=== PATIENT | female | born 1945 | race Caucasian/White ===

== ENCOUNTER → 2016-07-13 | Outpatient (CLI) | payer MEDICARE, OTHER | END | disposition disaster alternative care site (69) | LOC: GBCOE 12:48 | DX: Z12.31 Encounter for screening mammogram for malignant neoplasm of breast (principal); Z13.820 Encounter for screening for osteoporosis; M85.89 Other specified disorders of bone density and structure, multiple sites; Z78.0 Asymptomatic menopausal state | CPT/HCPCS: G0202 ==

== ENCOUNTER 2016-08-20 07:22 | Emergency (ER) | payer MEDICARE, OTHER ==
--- NOTE | ~2016-08-20 | ER ---
PATIENT'S NAME: [facility] AGE: 71 Y [address] ROOM: [place] [address] LOCATION: [facility] ADMIT DATE: 08/20/2016 ER/Outpatient Report DISCHARGE DATE: 08/20/2016 FAMILY PHYSICIAN: Maggi Gaitan MD ATTENDING PHYSICIAN: Mike Ramirez Time of Arrival: 0722 hours. Time of Evaluation: 0730 hours. CHIEF COMPLAINT: Bladder infection. HISTORY OF PRESENT ILLNESS: The patient is a 71-year-old female, who presents to the emergency department today with chief complaint of bladder infection. She reports she has had increased frequency, burning with urination. She does have a history of bladder infections, has not had one in some time. Symptoms are currently 6 to 7/10 in severity. Denies any chest pain. No shortness of breath. No nausea or vomiting. No fevers or chills. No diarrhea. Denies any abdominal pain. PAST MEDICAL HISTORY: 1. Hypertension. 2. Czy-patzjxs-owfpxewgg diabetes. 3. Hypothyroidism. 4. Dyslipidemia. 5. Neuropathy. PAST SURGICAL HISTORY: 1. section. 2. Cholecystectomy. 3. Appendectomy. 4. Hysterectomy. SOCIAL HISTORY: The patient denies any tobacco use. Reports occasional alcohol use. Denies any illicit drug use. ALLERGIES: DOXYCYCLINE AND NSAIDS. MEDICATIONS: Please see list. PRIMARY CARE DOCTOR: Maggi Gaitan MD PATIENT'S NAME: [facility] AGE: 71 Y [address] ROOM: [place] [address] LOCATION: [facility] ADMIT DATE: 08/20/2016 ER/Outpatient Report DISCHARGE DATE: 08/20/2016 FAMILY PHYSICIAN: Maggi Gaitan MD ATTENDING PHYSICIAN: Mike Ramirez REVIEW OF SYSTEMS: All systems are reviewed by myself are negative with the exception of those discussed in the HPI and past medical history. PHYSICAL EXAMINATION: VITAL SIGNS: Weight 85.9 kg. Blood pressure 178/74, pulse 88, respiratory rate 16, temperature 97.7, and oxygen saturation 95% on room air. GENERAL: The patient is a 71-year-old female, who appears stated age, in no acute distress. HEENT: Head; normocephalic and atraumatic. Pupils are equal, round, and reactive to light. Mucous membranes moist. NECK: Supple. There is no nuchal rigidity. CARDIOVASCULAR: Regular rate and rhythm. No murmurs, rubs, or gallops. LUNGS: Clear to auscultation bilaterally. No wheezes, rales, or rhonchi. ABDOMEN: Soft, nontender, and nondistended. No rebound, rigidity, or guarding. MUSCULOSKELETAL: The patient moves all 4 extremities. SKIN: Warm and dry. No rashes or lesions noted. LABORATORY DATA AND IMAGING STUDIES: Labs and X-rays: Urinalysis was obtained, does reveal 500 leukocyte esterase, positive nitrites, 30 protein, 250 blood, full field wbc's, rare epithelials, and rare bacteria. IMPRESSION: 1. Acute urinary tract infection suspect bladder. 2. Initial visit. EMERGENCY DEPARTMENT COURSE: The patient was brought back to the examination room. Seen and evaluated by myself. Laboratory analysis was obtained as described above. I have discussed results with the patient. I have written a prescription for Macrobid as well as Pyridium. I have discussed following up with Dr. Gaitan in 2 to 3 days for re-evaluation. I have discussed return to care instructions including fevers, chills, worsening symptoms, or any other concerns to return to the emergency department as soon as possible. The patient is agreeable without further questions at this time. DISPOSITION: The patient was discharged to home in good condition. PATIENT'S NAME: SHAREE FERNANDEZ [facility] AGE: 71 Y [address] ROOM: [place] [address] LOCATION: ED ADMIT DATE: 08/20/2016 ER/Outpatient Report DISCHARGE DATE: 08/20/2016 FAMILY PHYSICIAN: Maggi Gaitan MD ATTENDING PHYSICIAN: Mike Ramirez DO KJR/ghadal /[id number] d: 08/20/16 1312 t: 08/21/16 1558, OUTPATIENT REPORT
[2016-08-20 07:34] LABS: BLOOD URINE 250 /UL (NEGATIVE); GLUCOSE URINE NEGATIVE (NEGATIVE); KETONE URINE NEGATIVE (NEGATIVE); LEUKOCYTES URINE 500 /UL (NEGATIVE); NITRITE URINE POSITIVE (NEGATIVE); PROTEIN URINE 30 mg/dL (NEGATIVE); TURBIDITY URINE 1+ (CLEAR); UROBILINOGEN URINE 4 mg/dL (NORMAL)
[2016-08-20 07:39] LABS: COLOR URINE AMBER (YELLOW)
[2016-08-20 07:41] LABS: BACTERIA URINE RARE (NEGATIVE); EPITHELIAL URINE RARE #/HPF (NEGATIVE); RBC URINE 0-2 #/HPF (NEGATIVE); WBC URINE FULL FIELD #/HPF (NEGATIVE)
== END 2016-08-20 07:46 | disposition disaster alternative care site (69) ==
LOC: GMED 07:22
PROVIDERS: Emergency Medicine
DX: N39.0 Urinary tract infection, site not specified (principal); I10 Essential (primary) hypertension; E11.40 Type 2 diabetes mellitus with diabetic neuropathy, unspecified; E03.9 Hypothyroidism, unspecified; E78.5 Hyperlipidemia, unspecified; Z90.49 Acquired absence of other specified parts of digestive tract; Z90.710 Acquired absence of both cervix and uterus; Z88.1 Allergy status to other antibiotic agents; Z88.6 Allergy status to analgesic agent; Z79.899 Other long term (current) drug therapy

== ENCOUNTER → 2016-08-24 | Outpatient (CLI) | payer MEDICARE, OTHER | END | disposition disaster alternative care site (69) | LOC: GRAD 08:46 | DX: J32.9 Chronic sinusitis, unspecified (principal); J34.89 Other specified disorders of nose and nasal sinuses ==

== ENCOUNTER → 2016-10-25 | Outpatient (CLI) | payer MEDICARE, OTHER | LOC: LGSMG 14:23 | DX: N39.0 Urinary tract infection, site not specified (principal) ==